=== PATIENT | male | born 1995 | race Caucasian/White ===

== ENCOUNTER 2018-12-23 16:05 | Emergency (ER) | payer BC, OTHER ==
--- NOTE | 2018-12-23 16:44 | EDM.PDOC ---
ED HPI GENERAL MEDICAL PROBLEM - General Chief Complaint: Bite:Animal, Insect Stated Complaint: DOG BITE Time Seen by Provider: 12/23/18 16:40 Source of Information: Reports: Patient History Limitations: Reports: No Limitations - History of Present Illness INITIAL COMMENTS - FREE TEXT/NARRATIVE: HISTORY AND PHYSICAL: History of present illness: Patient is a 23-year-old male here with complaint of dog bite. 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 He states the dog had his right hand in his mouth and he is to use his left hand to punch him in the mouth to get him to release. He is up-to-date on his tetanus. The dog was taken to the vet and was found to be chipped and is up-to- date on immunizations including rabies. Review of systems: As per history of present illness and below otherwise all systems reviewed and negative. Past medical history: As per history of present illness and as reviewed below otherwise noncontributory. Surgical history: As per history of present illness and as reviewed below otherwise noncontributory. Social history: No reported history of drug or alcohol abuse. Family history: As per history of present illness and as reviewed below otherwise noncontributory. Physical exam: General: Patient sitting comfortably in no acute distress and nontoxic appearing HEENT: Atraumatic, normocephalic, pupils reactive, negative for conjunctival pallor or scleral icterus, mucous membranes moist, throat clear, neck supple, nontender, trachea midline. No meningeal signs. Lungs: Clear to auscultation, breath sounds equal bilaterally, chest nontender. Heart: S1S2, regular, negative for clicks, rubs, or overt murmur. Abdomen: Soft, nondistended, nontender. Negative for masses or hepatosplenomegaly. Negative for costovertebral tenderness. Pelvis: Stable nontender. Genitourinary: Deferred. Rectal: Deferred. Extremities: Small puncture wound to the dorsal aspect of the right hand at the base of the 4th MCP and on the dorsal side of the 3rd finger between the DIP and PIP. Small cut to the de leon side of the the right hand at the hypothenar eminence . There is blood filled blister on the right distal middle finger on the radial side. Abrasion to the right proximal and radial forearm. negative for cords or calf pain. Neurovascular unremarkable. Neuro: Awake, alert, oriented. Cranial nerves II through XII unremarkable. Cerebellum unremarkable. Motor and sensory unremarkable throughout. Exam nonfocal. Notes: Diagnostics: None Therapeutics: None Prescriptions: Augmentin Impression: Dog bite wound Plan: 1. Take antibiotic as instructed 2. Follow-up with primary care provider 3. Return to ED as needed as discussed Definitive disposition and diagnosis as appropriate pending reevaluation and review of above. - Related Data Allergies Allergy/AdvReac Type Severity Reaction Status Date / Time peanut Allergy Anaphylactic Verified 12/23/18 16:46 Shock Home Meds: Home Meds Amoxicillin/Potassium Clav [Augmentin 875-125 Tablet] 1 each PO BID 7 Days #14 tablet 12/23/18 [Rx] Past Medical History - Past Health History Medical/Surgical History: Denies Medical/Surgical History ED ROS GENERAL - Review of Systems Review Of Systems: ROS reveals no pertinent complaints other than HPI. ED EXAM, ANIMAL BITE - Physical Exam Exam: See Below (See dictation) Course - Vital Signs Last Recorded V/S: Last Vital Signs Temp 98.2 F 12/23/18 16:46 Pulse 98 12/23/18 16:46 Resp 18 12/23/18 16:46 BP 140/84 12/23/18 16:46 Pulse Ox 98 12/23/18 16:46 Departure - Departure Time of Disposition: 16:59 Disposition: Home, Self-Care 01 Condition: Good Clinical Impression: Dog bite - Discharge Information Prescriptions: Amoxicillin/Potassium Clav [Augmentin 875-125 Tablet] 1 each PO BID 7 Days #14 tablet Referrals: PCP,Unknown [Primary Care Provider] - Forms: ED Department Discharge Additional Instructions: The following information is given to patients seen in the emergency department who are being discharged to home. This information is to outline your options for follow-up care. We provide all patients seen in our emergency department with a follow-up referral. The need for follow-up, as well as the timing and circumstances, are variable depending upon the specifics of your emergency department visit. If you don't have a primary care physician on staff, we will provide you with a referral. We always advise you to contact your personal physician following an emergency department visit to inform them of the circumstance of the visit and for follow-up with them and/or the need for any referrals to a consulting specialist. The emergency department will also refer you to a specialist when appropriate. This referral assures that you have the opportunity for follow-up care with a specialist. All of these measure are taken in an effort to provide you with optimal care, which includes your follow-up. Under all circumstances we always encourage you to contact your private physician who remains a resource for coordinating your care. When calling for follow-up care, please make the office aware that this follow-up is from your recent emergency room visit. If for any reason you are refused follow-up, please contact the [facility] Emergency Department at and asked to speak to the emergency department charge nurse. [facility] Primary [facility] [place] [id number] 1. Take antibiotic as instructed 2. Follow-up with primary care provider 3. Return to ED as needed as discussed
[2018-12-23 17:03] VITALS: BP 151/82
== END 2018-12-23 17:17 | disposition home or self-care (01) ==
LOC: MW.ED 16:05
DX: S61.252A Open bite of right middle finger without damage to nail, initial encounter (principal); S61.451A Open bite of right hand, initial encounter; W54.0XXA Bitten by dog, initial encounter; Z91.010 Allergy to peanuts
CPT/HCPCS: 99283

== ENCOUNTER 2019-05-22 18:13 | Emergency (ER) | payer BC ==
[2019-05-22] MEDS ORDERED: Rabies Vaccine (Avian) 2.5 Unit Inj Kit IM ONE (19:42)
[2019-05-22] MEDS ORDERED: Rabies Immune Globulin PF 150 Units/ML 10 ML SDV IM ONE (19:44)
--- NOTE | 2019-05-22 19:46 | EDM.PDOC ---
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 Patient reports allergies to penicillin. Review of systems: As per history of present illness and below otherwise all systems reviewed and negative. Past medical history: As per history of present illness and as reviewed below otherwise noncontributory. Surgical history: As per history of present illness and as reviewed below otherwise noncontributory. Social history: No reported history of drug or alcohol abuse. Family history: As per history of present illness and as reviewed below otherwise noncontributory. Physical exam: HEENT: Atraumatic, normocephalic, pupils reactive, negative for conjunctival pallor or scleral icterus, mucous membranes moist, throat clear, neck supple, nontender, trachea midline. Lungs: Clear to auscultation, breath sounds equal bilaterally, chest nontender. Heart: S1S2, regular, negative for clicks, rubs, or JVD. Abdomen: Soft, nondistended, nontender. Negative for masses or hepatosplenomegaly. Negative for costovertebral tenderness. Pelvis: Stable nontender. Genitourinary: Deferred. Rectal: Deferred. Extremities: Atraumatic, negative for cords or calf pain. Neurovascular unremarkable. Patient has multiple scratches and has 1 small puncture of the second digit is totally. CMS neurovascular exam is unremarkable Neuro: Awake, alert, oriented. Cranial nerves II through XII unremarkable. Cerebellum unremarkable. Motor and sensory unremarkable throughout. Exam nonfocal. Diagnostics: None Therapeutics: Initiation of rabies prophylaxis hand was cleansed irrigated and dressed with bacitracin Impression: # 1 animal bite left hand (cat) Definitive disposition and diagnosis as appropriate pending reevaluation and review of above. Left Finger-Index Pain Score (Numeric/FACES): 4 - Related Data Allergies Allergy/AdvReac Type Severity Reaction Status Date / Time peanut Allergy Anaphylactic Verified 05/22/19 18:40 Shock Home Meds: Home Meds . [No Known Home Meds] 05/22/19 [History] Past Medical History - Past Health History Medical/Surgical History: Denies Medical/Surgical History Neurological History: Reports: Seizure - Infectious Disease History Infectious Disease History: Reports: None Social & Family History - Family History Family Medical History: Noncontributory - Tobacco Use Smoking Status *Q: Never Smoker Second Hand Smoke Exposure: No - Caffeine Use Caffeine Use: Reports: Coffee - Recreational Drug Use Recreational Drug Use: No ED ROS GENERAL - Review of Systems Review Of Systems: ROS reveals no pertinent complaints other than HPI. ED EXAM, ANIMAL BITE - Physical Exam Exam: See Below (See dictation) Course - Vital Signs Last Recorded V/S: Last Vital Signs Temp 36.3 C 05/22/19 18:41 Pulse 91 05/22/19 18:41 Resp 16 05/22/19 18:41 BP 139/94 H 05/22/19 18:41 Pulse Ox 95 05/22/19 18:41 Departure - Departure Time of Disposition: 19:45 Disposition: Home, Self-Care 01 Condition: Good Clinical Impression: Animal bite - Discharge Information Referrals: Nii Lim MD [Primary Care Provider] - Additional Instructions: The following information is given to patients seen in the emergency department who are being discharged to home. This information is to outline your options for follow-up care. We provide all patients seen in our emergency department with a follow-up referral. The need for follow-up, as well as the timing and circumstances, are variable depending upon the specifics of your emergency department visit. If you don't have a primary care physician on staff, we will provide you with a referral. We always advise you to contact your personal physician following an emergency department visit to inform them of the circumstance of the visit and for follow-up with them and/or the need for any referrals to a consulting specialist. The emergency department will also refer you to a specialist when appropriate. This referral assures that you have the opportunity for followup care with a specialist. All of these measure are taken in an effort to provide you with optimal care, which includes your followup. Under all circumstances we always encourage you to contact your private physician who remains a resource for coordinating your care. When calling for followup care, please make the office aware that this follow-up is from your recent emergency room visit. If for any reason you are refused follow-up, please contact the [facility] emergency department at and asked to speak to the emergency department charge nurse. Bactrim as prescribed and follow-up for scheduled rabies prophylaxis as discussed[]
[2019-05-23 02:25] VITALS: BP 112/57
== END 2019-05-22 21:20 | disposition home or self-care (01) ==
LOC: MW.ED 18:13
DX: S61.452A Open bite of left hand, initial encounter (principal); Z23 Encounter for immunization; Z91.010 Allergy to peanuts; W55.01XA Bitten by cat, initial encounter
CPT/HCPCS: 90375; 90471; 90675; 96372; 99283

== ENCOUNTER 2019-05-29 19:28 | Emergency (ER) | payer BC ==
[2019-05-29] MEDS ORDERED: Sodium Chloride 0.9% 1,000 ML IV ONE (19:55)
[2019-05-29] MEDS ORDERED: Ketorolac 30 MG/ML SDV IVPUSH ONE (19:55)
[2019-05-29] MEDS ORDERED: Ondansetron 4 MG/2 ML SDV IVPUSH ONE (19:56)
--- NOTE | 2019-05-29 19:56 | EDM.PDOC ---
ED HPI GENERAL MEDICAL PROBLEM - General Chief Complaint: General Stated Complaint: COLD/FLU LIKE SYMPTOMS Time Seen by Provider: 05/29/19 19:56 Source of Information: Reports: Patient - History of Present Illness INITIAL COMMENTS - FREE TEXT/NARRATIVE: HISTORY AND PHYSICAL: History of present illness: [Patient presents stating he "just doesn't feel well" he is in no distress alert interactive he has not been eating over the last 24 hours as he has no appetite on physical exam he did have some abdominal tenderness diffuse nonfocal on deep palpation right lower and right upper quadrant he's had some nausea but no vomiting chills or sweats no chest pain shortness breath headache dizziness or palpitation no bowel or urine symptoms He is here to complete her rabies series and would like to be examined Review of systems: As per history of present illness and below otherwise all systems reviewed and negative. Past medical history: As per history of present illness and as reviewed below otherwise noncontributory. Surgical history: As per history of present illness and as reviewed below otherwise noncontributory. Social history: No reported history of drug or alcohol abuse. Family history: As per history of present illness and as reviewed below otherwise noncontributory. Physical exam: HEENT: Atraumatic, normocephalic, pupils reactive, negative for conjunctival pallor or scleral icterus, mucous membranes moist, throat clear, neck supple, nontender, trachea midline. Lungs: Clear to auscultation, breath sounds equal bilaterally, chest nontender. Heart: S1S2, regular, negative for clicks, rubs, or JVD. Abdomen: Soft, nondistended, tender on deep palpation right upper and lower quadrant no guarding or rebound. Negative for masses or hepatosplenomegaly. Negative for costovertebral tenderness. Pelvis: Stable nontender. Genitourinary: Deferred. Rectal: Deferred. Extremities: Atraumatic, negative for cords or calf pain. Neurovascular unremarkable. Neuro: Awake, alert, oriented. Cranial nerves II through XII unremarkable. Cerebellum unremarkable. Motor and sensory unremarkable throughout. Exam nonfocal. Diagnostics: CBC CMP UA CT abdomen pelvis with contrast ] Therapeutics: [Cipro 500 by mouth twice a day #20 no refill Complete rabies series Return if symptoms persist or worsen] Impression: [Abdominal pain Possibly mesenteric adenitis] Definitive disposition and diagnosis as appropriate pending reevaluation and review of above. abd pain Pain Score (Numeric/FACES): 7 low back Pain Score (Numeric/FACES): 7 headache Pain Score (Numeric/FACES): 7 - Related Data Allergies Allergy/AdvReac Type Severity Reaction Status Date / Time peanut Allergy Anaphylactic Verified 05/22/19 18:40 Shock Penicillins Allergy Cannot Verified 05/29/19 19:53 Remember Home Meds: Home Meds . [No Known Home Meds] 05/22/19 [History] Past Medical History - Past Health History Medical/Surgical History: Denies Medical/Surgical History Neurological History: Reports: Seizure - Infectious Disease History Infectious Disease History: Reports: None Social & Family History - Family History Family Medical History: Noncontributory - Caffeine Use Caffeine Use: Reports: Coffee ED ROS GENERAL - Review of Systems Review Of Systems: See Below ED EXAM, GENERAL - Physical Exam Exam: See Below Course - Vital Signs Last Recorded V/S: Last Vital Signs Temp 98.4 F 05/29/19 19:53 Pulse 102 H 05/29/19 19:53 Resp 18 05/29/19 19:53 BP 131/83 05/29/19 19:53 Pulse Ox 97 05/29/19 19:53 - Orders/Labs/Meds Labs: Laboratory Tests 05/29/19 05/29/19 05/29/19 Range/Units 20:00 20:05 20:05 WBC 11.86 H (4.0-11.0) K/uL RBC 5.80 (4.50-5.90) M/uL Hgb 16.7 (13.0-17.0) g/dL Hct 48.4 (38.0-50.0) % MCV 83.4 (80.0-98.0) fL MCH 28.8 (27.0-32.0) pg MCHC 34.5 (31.0-37.0) g/dL RDW Std Deviation 37.8 (28.0-62.0) fl RDW Coeff of Hailey 13 (11.0-15.0) % Plt Count 254 (150-400) K/uL MPV 9.70 (7.40-12.00) fL Neut % (Auto) 86.4 H (48.0-80.0) % Lymph % (Auto) 6.3 L (16.0-40.0) % [place] % (Auto) 5.7 (0.0-15.0) % Eos % (Auto) 1.4 (0.0-7.0) % Baso % (Auto) 0.2 (0.0-1.5) % Neut # (Auto) 10.2 H (1.4-5.7) K/uL Lymph # (Auto) 0.8 (0.6-2.4) K/uL [place] # (Auto) 0.7 (0.0-0.8) K/uL Eos # (Auto) 0.2 (0.0-0.7) K/uL Baso # (Auto) 0.0 (0.0-0.1) K/uL Nucleated RBC % 0.0 /100WBC Nucleated RBCs # 0 K/uL Sodium 140 (136-148) mmol/L Potassium 4.0 (3.5-5.1) mmol/L Chloride 103 (98-107) mmol/L Carbon Dioxide 28.0 (21.0-32.0) mmol/L BUN 19 H (7.0-18.0) mg/dL Creatinine 1.1 (0.8-1.3) mg/dL Est Cr Clr Drug Dosing 103.55 mL/min Estimated GFR (MDRD) > 60.0 ml/min Glucose 104 (74-106) mg/dL Calcium 8.7 (8.5-10.1) mg/dL Total Bilirubin 0.8 (0.2-1.0) mg/dL AST 16 (15-37) IU/L ALT 30 (14-63) IU/L Alkaline Phosphatase 73 (46-116) U/L Total Protein 7.3 (6.4-8.2) g/dL Albumin 4.3 (3.4-5.0) g/dL Globulin 3.0 (2.6-4.0) g/dL Albumin/Globulin Ratio 1.4 (0.9-1.6) Urine Color YELLOW Urine Appearance CLEAR Urine pH 5.5 (5.0-8.0) Ur Specific [place] >= 1.030 (1.001-1.035) Urine Protein NEGATIVE (NEGATIVE) mg/dL Urine Glucose (UA) NEGATIVE (NEGATIVE) mg/dL Urine Ketones NEGATIVE (NEGATIVE) mg/dL Urine Occult Blood NEGATIVE (NEGATIVE) Urine Nitrite NEGATIVE (NEGATIVE) Urine Bilirubin NEGATIVE (NEGATIVE) Urine Urobilinogen 0.2 (<2.0) EU/dL Ur Leukocyte Esterase NEGATIVE (NEGATIVE) Meds: Medications Discontinued Medications Generic Name Dose Route Start Last Admin Trade Name Addi PRN Reason Stop Dose Admin Sodium Chloride 1,000 mls @ 999 mls/hr 05/29/19 19:55 05/29/19 20:11 Normal Saline IV 05/29/19 20:55 999 mls/hr STAT ONE Administration Iopamidol 100 ml 05/29/19 21:05 05/29/19 21:05 Isovue Multipack-370 (76%) IVPUSH 05/29/19 21:06 100 ml ONETIME ONE Administration Ketorolac Tromethamine 30 mg 05/29/19 19:55 05/29/19 20:12 Toradol IVPUSH 05/29/19 19:56 30 mg ONETIME ONE Administration Ondansetron HCl 8 mg 05/29/19 19:56 05/29/19 20:11 Zofran IVPUSH 05/29/19 19:57 8 mg ONETIME ONE Administration Departure - Departure Time of Disposition: 21:49 Disposition: Home, Self-Care 01 Condition: Good Clinical Impression: Abdominal pain - Discharge Information Referrals: PCP,None [Primary Care Provider] - Forms: ED Department Discharge Additional Instructions: The following information is given to patients seen in the emergency department who are being discharged to home. This information is to outline your options for follow-up care. We provide all patients seen in our emergency department with a follow-up referral. The need for follow-up, as well as the timing and circumstances, are variable depending upon the specifics of your emergency department visit. If you don't have a primary care physician on staff, we will provide you with a referral. We always advise you to contact your personal physician following an emergency department visit to inform them of the circumstance of the visit and for follow-up with them and/or the need for any referrals to a consulting specialist. The emergency department will also refer you to a specialist when appropriate. This referral assures that you have the opportunity for follow-up care with a specialist. All of these measure are taken in an effort to provide you with optimal care, which includes your follow-up. Under all circumstances we always encourage you to contact your private physician who remains a resource for coordinating your care. When calling for follow-up care, please make the office aware that this follow-up is from your recent emergency room visit. If for any reason you are refused follow-up, please contact the [facility] emergency department at and asked to speak to the emergency department charge nurse.
[2019-05-29 20:39] LABS: CHLORIDE,CL 103 mmol/L (98-107); SODIUM,NA 140 mmol/L (136-148)
[2019-05-29] MEDS ORDERED: Iopamidol 755 MG/ML 500 ML Multipack Bottle IVPUSH ONE (21:05)
--- NOTE | 2019-05-29 21:26 | CT ---
TECHNIQUE: IV contrast-enhanced CT abdomen and pelvis. 100 mL Isovue-370 injected. INDICATION: Abdominal pain. FINDINGS: The liver, spleen, pancreas, kidneys, and adrenal glands appear normal. Gallbladder and biliary tree appear normal. The appendix is normal. No bowel obstruction. No adenopathy, free air, or free fluid. The visualized lung bases are clear. IMPRESSION: Normal abdomen pelvis CT. Dictated by Cristi Rodriguez MD @ 05/29/2019 9:24:23 PM Please note that all CT scans at this facility use dose modulation, iterative reconstruction, and/or weight-based dosing when appropriate to reduce radiation dose to as low as reasonably achievable. Dictated by: Cristi Rodriguez MD @ 05/29/2019 21:24:34 (Electronically Signed)
[2019-05-29 22:02] VITALS: BP 145/71
== END 2019-05-29 22:04 | disposition home or self-care (01) ==
LOC: MW.ED 19:28
DX: R10.9 Unspecified abdominal pain (principal); Z88.0 Allergy status to penicillin; Z91.010 Allergy to peanuts
CPT/HCPCS: 36415; 74177; 80053; 81003; 85025; 96361; 96374; 96375; 99284; J1885; J2405; J7040; Q9967

== ENCOUNTER 2019-12-05 21:25 | Emergency (ER) | payer BC ==
[2019-12-05] MEDS ORDERED: Sodium Chloride 0.9% 1,000 ML IV ONE (21:47)
[2019-12-05] MEDS ORDERED: Iopamidol 755 Mg/ML 100 ML Bottle IVPUSH STA (22:14)
[2019-12-05 22:25] LABS: BLOOD UREA NITROGEN,BUN 23 mg/dL (7.0-18.0); CARBON DIOXIDE,CO2 30.4 mmol/L (21.0-32.0); CHLORIDE,CL 105 mmol/L (98-107); GLUCOSE RANDOM 89 mg/dL (74-106); POTASSIUM,K 4.3 mmol/L (3.5-5.1); SODIUM,NA 143 mmol/L (136-148)
[2019-12-05] MEDS ORDERED: Morphine 2 MG/ML Syringe IVPUSH ONE (22:31)
[2019-12-05] MEDS ORDERED: Ondansetron 4 MG/2 ML SDV IVPUSH ONE (22:31)
[2019-12-05 22:48] VITALS: BP 132/62; PULSE 52
--- NOTE | 2019-12-05 23:28 | CT ---
INDICATION: RLQ pain. CT ABDOMEN AND PELVIS WITH CONTRAST TECHNIQUE: Multidetector CT imaging was performed through the abdomen and pelvis following intravenous contrast administration using 100 mL Isovue 370. Coronal and sagittal reconstructions were generated. COMPARISON: 05/29/2019 CT abdomen and pelvis. FINDINGS: Lower chest: Lung bases are clear. Liver: Within normal limits. Gallbladder and bile ducts: No gallbladder wall thickening or calcified gallstones. No biliary dilation identified. Pancreas: Unremarkable. Spleen: Normal. Adrenals: No nodules or masses. Kidneys, ureters, and urinary bladder: No renal masses or hydronephrosis. No bladder mass or definite wall thickening. Gastrointestinal tract: Normal caliber bowel without wall thickening or obstruction. The appendix is normal. There is a small area of fat stranding just anterior to the proximal ascending colon which outlines an ovoid fatty lucency, consistent with epiploic appendagitis, as seen on image 66 of series 201, image 48 of series 203, and image 43 of series 204. Vascular structures: Normal for age. Peritoneum: No free air, abscess, or significant free fluid. Lymph nodes: No pathologically enlarged nodes identified. Reproductive organs: No pelvic masses. Bones: Normal for age. IMPRESSION: Epiploic appendagitis in the right mid abdomen just anterior to the proximal ascending colon. This could be the source of the patient`s pain. No other abnormalities are noted. SHADI VILLAGOMEZ MD [employer] Dictated by Jessee Villagomez MD @ 12/05/2019 11:26:41 PM Dictated by: Jessee Villagomez MD @ 12/05/2019 23:27:17 (Electronically Signed)
[2019-12-05] MEDS ORDERED: metroNIDAZOLE/Normal Saline 500 MG in Premix Bag 1 BAG IV ONE (23:40)
[2019-12-05] MEDS ORDERED: Clindamycin HCl 150 MG Cap PO ONE (23:41)
--- NOTE | 2019-12-06 01:25 | EDM.PDOC ---
ED HPI GENERAL MEDICAL PROBLEM - General Chief Complaint: Abdominal Pain Stated Complaint: PAIN RIGHT SIDE OF APPENDIX Time Seen by Provider: 12/05/19 21:50 Source of Information: Reports: Patient History Limitations: Reports: No Limitations - History of Present Illness INITIAL COMMENTS - FREE TEXT/NARRATIVE: 24-year-old gentleman presents the emergency room with right lower quadrant pain and tenderness. Patient denies fever and chills Onset: Today Duration: Getting Worse Location: Reports: Abdomen Right Lower Abdomen Pain Score (Numeric/FACES): 6 - Related Data Allergies Allergy/AdvReac Type Severity Reaction Status Date / Time peanut Allergy Anaphylactic Verified 12/05/19 21:43 Shock Penicillins Allergy Cannot Verified 12/05/19 21:43 Remember Home Meds: Home Meds . [No Known Home Meds] 05/22/19 [History] Past Medical History - Past Health History Medical/Surgical History: Denies Medical/Surgical History Neurological History: Reports: Seizure - Infectious Disease History Infectious Disease History: Reports: None Social & Family History - Family History Family Medical History: Noncontributory - Tobacco Use Smoking Status *Q: Never Smoker Second Hand Smoke Exposure: No - Caffeine Use Caffeine Use: Reports: Energy Drinks - Recreational Drug Use Recreational Drug Use: No ED ROS GENERAL - Review of Systems Review Of Systems: Comprehensive ROS is negative, except as noted in HPI. Constitutional: Reports: No Symptoms HEENT: Reports: No Symptoms Respiratory: Reports: No Symptoms Cardiovascular: Reports: No Symptoms Endocrine: Reports: No Symptoms GI/Abdominal: Reports: Abdominal Pain : Reports: No Symptoms Musculoskeletal: Reports: No Symptoms Skin: Reports: No Symptoms Neurological: Reports: No Symptoms Psychiatric: Reports: No Symptoms Hematologic/Lymphatic: Reports: No Symptoms Immunologic: Reports: No Symptoms ED EXAM, GI/ABD - Physical Exam Exam: See Below Exam Limited By: No Limitations General Appearance: Alert, WD/WN, No Apparent Distress Ears: Normal External Exam, Normal Canal, Hearing Grossly Normal Course - Vital Signs Last Recorded V/S: Last Vital Signs Temp 99.8 F 12/05/19 21:40 Pulse 52 L 12/05/19 22:45 Resp 18 12/05/19 22:45 BP 132/62 12/05/19 22:45 Pulse Ox 98 12/05/19 22:45 24-year-old female presents emergency room patient states he has had this problem before patient's CAT scans shows epiploic appendagitis patient will be discharged home follow with the primary care physician - Orders/Labs/Meds Labs: Laboratory Tests 12/05/19 12/05/19 12/05/19 Range/Units 21:50 21:57 21:57 WBC 8.02 (4.0-11.0) K/uL RBC 5.49 (4.50-5.90) M/uL Hgb 15.8 (13.0-17.0) g/dL Hct 46.1 (38.0-50.0) % MCV 84.0 (80.0-98.0) fL MCH 28.8 (27.0-32.0) pg MCHC 34.3 (31.0-37.0) g/dL RDW Std Deviation 38.8 (28.0-62.0) fl RDW Coeff of Hailey 13 (11.0-15.0) % Plt Count 273 (150-400) K/uL MPV 9.80 (7.40-12.00) fL Neut % (Auto) 57.6 (48.0-80.0) % Lymph % (Auto) 31.9 (16.0-40.0) % Pierce % (Auto) 6.5 (0.0-15.0) % Eos % (Auto) 3.6 (0.0-7.0) % Baso % (Auto) 0.4 (0.0-1.5) % Neut # (Auto) 4.6 (1.4-5.7) K/uL Lymph # (Auto) 2.6 H (0.6-2.4) K/uL Pierce # (Auto) 0.5 (0.0-0.8) K/uL Eos # (Auto) 0.3 (0.0-0.7) K/uL Baso # (Auto) 0.0 (0.0-0.1) K/uL Nucleated RBC % 0.0 /100WBC Nucleated RBCs # 0 K/uL Sodium 143 (136-148) mmol/L Potassium 4.3 (3.5-5.1) mmol/L Chloride 105 (98-107) mmol/L Carbon Dioxide 30.4 (21.0-32.0) mmol/L BUN 23 H (7.0-18.0) mg/dL Creatinine 1.2 (0.8-1.3) mg/dL Est Cr Clr Drug Dosing 94.92 mL/min Estimated GFR (MDRD) > 60.0 ml/min Glucose 89 (74-106) mg/dL Calcium 9.0 (8.5-10.1) mg/dL Total Bilirubin 0.4 (0.2-1.0) mg/dL AST 12 L (15-37) IU/L ALT 30 (14-63) IU/L Alkaline Phosphatase 81 (46-116) U/L Total Protein 7.2 (6.4-8.2) g/dL Albumin 4.2 (3.4-5.0) g/dL Globulin 3.0 (2.6-4.0) g/dL Albumin/Globulin Ratio 1.4 (0.9-1.6) Urine Color YELLOW Urine Appearance CLEAR Urine pH 6.5 (5.0-8.0) Ur Specific [place] 1.025 (1.001-1.035) Urine Protein NEGATIVE (NEGATIVE) mg/dL Urine Glucose (UA) NEGATIVE (NEGATIVE) mg/dL Urine Ketones NEGATIVE (NEGATIVE) mg/dL Urine Occult Blood NEGATIVE (NEGATIVE) Urine Nitrite NEGATIVE (NEGATIVE) Urine Bilirubin NEGATIVE (NEGATIVE) Urine Urobilinogen 0.2 (<2.0) EU/dL Ur Leukocyte Esterase NEGATIVE (NEGATIVE) Meds: Medications Discontinued Medications Generic Name Dose Route Start Last Admin Trade Name Freq PRN Reason Stop Dose Admin Clindamycin HCl 300 mg 12/05/19 23:41 12/05/19 23:56 Cleocin PO 12/05/19 23:42 300 mg ONETIME ONE Administration Sodium Chloride 1,000 mls @ 999 mls/hr 12/05/19 21:47 12/05/19 22:01 Normal Saline IV 12/05/19 22:47 999 mls/hr .Bolus ONE Administration Metronidazole 500 mg/ Premix 100 mls @ 100 mls/hr 12/05/19 23:40 12/05/19 23: 59 IV 12/06/19 00:39 100 mls/hr ONETIME ONE Administration Iopamidol 100 ml 12/05/19 22:14 12/05/19 22:56 Isovue-370 (76%) IVPUSH 12/05/19 22:15 100 ml ONETIME STA Administration Morphine Sulfate 2 mg 12/05/19 22:31 12/05/19 22:40 Morphine IVPUSH 12/05/19 22:32 2 mg ONETIME ONE Administration Ondansetron HCl 4 mg 12/05/19 22:31 12/05/19 22:37 Zofran IVPUSH 12/05/19 22:32 4 mg ONETIME ONE Administration Departure - Departure Time of Disposition: 01:24 Disposition: Home, Self-Care 01 Condition: Good Clinical Impression: Epiploic appendagitis due to ischemia - Discharge Information Instructions: Abdominal Pain, Adult, [id number] Referrals: Nii Lim MD [Primary Care Provider] - Sepsis Event Note - Evaluation Sepsis Screening Result: No Definite Risk - Focused Exam Vital Signs: Vital Signs Temp Pulse Resp BP Pulse Ox 12/05/19 22:45 52 L 18 132/62 98 12/05/19 21:40 99.8 F 65 18 126/69 97 Date Exam was Performed: 12/06/19 Time Exam was Performed: 01:21
== END 2019-12-06 01:44 | disposition home or self-care (01) ==
LOC: MW.ED 21:25
DX: K63.89 Other specified diseases of intestine (principal); Z88.0 Allergy status to penicillin; Z91.010 Allergy to peanuts
CPT/HCPCS: 36415; 74177; 80053; 81003; 85025; 96361; 96365; 96375; 99284; A9270; J2270; J2405; J3490; J7030; Q9967; 99283

== ENCOUNTER 2020-05-22 20:20 | Emergency (ER) | payer BC, OTHER ==
--- NOTE | 2020-05-22 21:12 | EDM.PDOC ---
ED HPI GENERAL MEDICAL PROBLEM - General Chief Complaint: General Stated Complaint: COVIC TEST Time Seen by Provider: 05/22/20 21:04 - History of Present Illness INITIAL COMMENTS - FREE TEXT/NARRATIVE: History of present illness: 25-year-old male presenting for cough and swab after known COVID exposure on May 19. 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 Patient has no reported symptoms, although he does report he has asthma and therefore has some chronic difficulty breathing for which he takes an inhaler once a day at bedtime. His breathing is not worsened than usual. He has not been coughing or had any fever. Review of systems: As per history of present illness and below otherwise all systems reviewed and negative. Past medical history: As per history of present illness and as reviewed below otherwise noncontributory. Asthma Surgical history: As per history of present illness and as reviewed below otherwise noncontributory. Social history: No reported history of drug or alcohol abuse. No tobacco Family history: As per history of present illness and as reviewed below otherwise noncontributory. Physical exam: GEN: no acute distress, well appearing HEENT: Atraumatic, normocephalic, mucous membranes moist, Neck: supple, nontender, trachea midline. Lungs: No respiratory distress. Heart: RRR Extremities: Atraumatic. Neurovascularly intact. Neuro: Awake, alert, oriented. Neuro Exam nonfocal. Skin: warm, dry, no lesions Diagnostics: [] Therapeutics: [] MDM: Impression: [] Plan: [] Definitive disposition and diagnosis as appropriate pending reevaluation and review of above. - Related Data Allergies Allergy/AdvReac Type Severity Reaction Status Date / Time peanut Allergy Anaphylactic Verified 12/05/19 21:43 Shock Penicillins Allergy Cannot Verified 12/05/19 21:43 Remember Home Meds: Home Meds Ibuprofen [Motrin] 600 mg PO Q8H PRN #20 tab 12/06/19 [Rx] Past Medical History - Past Health History Medical/Surgical History: Denies Medical/Surgical History Neurological History: Reports: Seizure - Infectious Disease History Infectious Disease History: Reports: None Social & Family History - Family History Family Medical History: Noncontributory - Tobacco Use Smoking Status *Q: Never Smoker Second Hand Smoke Exposure: No - Caffeine Use Caffeine Use: Reports: Coffee - Recreational Drug Use Recreational Drug Use: No ED ROS GENERAL - Review of Systems Review Of Systems: See Below (See HPI) ED EXAM, GENERAL - Physical Exam Exam: See Below (See HPI) Course - Vital Signs Text/Narrative:: Presenting for COVID swab. Asymptomatic other than chronic mild difficulty breathing due to his asthma. COVID swab is negative here today. Discussed with patient plan of care, close monitoring of symptoms and return to the emergency room immediately for any worsening of his breathing. Last Recorded V/S: Last Vital Signs Temp 98.3 F 05/22/20 20:57 Pulse 62 05/22/20 20:57 Resp 16 05/22/20 20:57 BP 134/76 05/22/20 20:57 Pulse Ox 95 05/22/20 20:57 - Orders/Labs/Meds Labs: Laboratory Tests 05/22/20 Range/Units 21:00 SARS-CoV-2 RNA (RT-PCR) NEGATIVE (NEGATIVE) - Re-Assessments/Exams Free Text/Narrative Re-Assessment/Exam: 05/22/20 21:36 Discussed negative COVID test with patient. Discussed return instructions and plan of care/monitoring of symptoms. He agrees with the plan. Departure - Departure Time of Disposition: 21:36 Disposition: Home, Self-Care 01 Clinical Impression: COVID-19 virus not detected - Discharge Information Referrals: Nii Lim MD [Primary Care Provider] - Forms: ED Department Discharge Additional Instructions: The following information is given to patients seen in the emergency department who are being discharged to home. This information is to outline your options for follow-up care. We provide all patients seen in our emergency department with a follow-up referral. The need for follow-up, as well as the timing and circumstances, are variable depending upon the specifics of your emergency department visit. If you don't have a primary care physician on staff, we will provide you with a referral. We always advise you to contact your personal physician following an emergency department visit to inform them of the circumstance of the visit and for follow-up with them and/or the need for any referrals to a consulting specialist. The emergency department will also refer you to a specialist when appropriate. This referral assures that you have the opportunity for follow-up care with a specialist. All of these measure are taken in an effort to provide you with optimal care, which includes your follow-up. Under all circumstances we always encourage you to contact your private physician who remains a resource for coordinating your care. When calling for follow-up care, please make the office aware that this follow-up is from your recent emergency room visit. If for any reason you are refused follow-up, please contact the [facility] Emergency Department at and asked to speak to the emergency department charge nurse. You have been exposed to COVID. Your test swab was negative today. Please continue to monitor for the development of any symptoms and check to see if you have a fever at least once a day the next 10 days. If you develop any symptoms including cough, difficulty breathing, fever, vomiting, diarrhea or abdominal pain, please self isolate. If you have any severe symptoms please return to the emergency room immediately. Sepsis Event Note (ED) - Evaluation Sepsis Screening Result: No Definite Risk - Focused Exam Vital Signs: Vital Signs Temp Pulse Resp BP Pulse Ox 05/22/20 20:57 98.3 F 62 16 134/76 95
[2020-05-23 02:55] VITALS: BP 136/86; PULSE 54
== END 2020-05-22 21:48 | disposition home or self-care (01) ==
LOC: MW.ED 20:20
DX: R05 Cough (principal); J45.909 Unspecified asthma, uncomplicated; Z20.828 Contact with and (suspected) exposure to other viral communicable diseases; Z91.010 Allergy to peanuts; Z88.0 Allergy status to penicillin; Z79.899 Other long term (current) drug therapy
CPT/HCPCS: 99282; 99283; U0002